=== PATIENT | female | born 1965 | race Caucasian/White ===

== ENCOUNTER → 2021-12-17 13:58 | Outpatient (REF) | payer SELFPAY | LOC: ANHLAB 13:58 | PROVIDERS: Visit Provider Surgery Plastic and Reconstructive Surgery | DX: N64.89 Other specified disorders of breast (principal) | CPT/HCPCS: 88104; 88108; 88184; 88305 ==

== ENCOUNTER 2022-01-30 11:17 | Day surgery (SDC) | payer OTHER, SELFPAY ==
[2022-01-16 10:23] VITALS: BMI 33.3
--- NOTE | 2022-01-16 10:32 | SUR.PREOP ---
PRE-OPERATIVE [address] [address] 1. Report to the Surgery Center Waiting Room, the entrance is the first door on the right after passing through the automatic sliding doors, at time ___1200_on date_01/30/22____. OR Time:__1330___ . When you arrive, you and your visitor will be screened for Covid prior to entry. A mask is required within the surgery center. 2. Patients may have clear liquids (water, carbonated beverages, clear teas, apple juice) until 3 hours prior to surgery with a maximum of 20 ounces. ? No food from midnight until time of surgery. ? Infants may have breast milk until 4 hours before surgery, formula 6 hours prior to surgery. ? Children will be allowed to drink immediately following surgery. If applicable, please bring a bottle or sippy cup to assist with drinking. Juice, water, soda, and popsicles are readily available. For infants on formula, please bring formula the day of surgery. Pacifiers are allowed. 3. Take the following medications with a SIP of water the morning of surgery: 1. 2. 3. Medications to discontinue per physician order: 1. date to discontinue: 4. No make-up, nail bhutanese, hairspray, perfume, deodorant, or body powder the day of surgery. No jewelry (including any body piercings) or valuables the day of surgery. Please take a shower or bath the night before, or the morning of, surgery with an antibacterial soap. Wear comfortable, loose fitting clothing. Children are encouraged to wear pajamas. ? Jewelry must be removed prior to entering the operating room. Rings and piercings that are not removed will be cut off. The center will not accept responsibility for valuables. Please leave all valuables, including medications, at home the day of surgery. 5. When going home after surgery, a licensed front end driver must drive you home. NO public transportation without another adult. We recommend someone to stay with you, no alcoholic beverages, driving or important decision making for 24 hours after surgery. For pediatric surgeries, we recommend two adults to accompany a child home. (Only one will be allowed into the building with the patient) 6. 1 visitor (over age of 18) will be allowed. The visitor will drop patient off and remain in car until patient is prepared for surgery. Visitor will be called to join patient. Exceptions: Adult of a pediatric patient, patients with intellectual and/or developmental disability or cognitive impairments can accompany patient through-out visit. Visitors will need to be screened prior to coming into the center. Screening will include Covid symptom question checking. Visitor must wear a mask. Visitor will remain in patient?s room for duration of stay. 7. If you or anyone in your household have experienced Covid symptoms in the past week, please notify your surgeon or surgery center at phone number below for possible testing. 8. Follow any additional instructions given by your physician. Telephone instructions given to:___Tejal Barrientos____ and asked if any additional questions and then verbalized understanding. Patient advised to call surgeon office or the surgery center at [phone] if any additional questions.
[2022-01-30 11:36] VITALS: BP 142/94; PULSE 78; RESP 20; TEMP 37.2; O2SAT 96
[2022-01-30 11:37] VITALS: BMI 33.7
[2022-01-30] MEDS: ACETAMINOPHEN 500 MG TABLET 1000 MG PO (11:48)
[2022-01-30] MEDS: SCOPOLAMINE 1.5 MG PATCH TRANSDERM (11:48)
[2022-01-30] MEDS: LACTATED RINGERS 1,000 ML 30 ML IV CONT ×2 (12:02→15:10)
--- NOTE | 2022-01-30 12:06 | WPDANESEPPF ---
Anes - Initial Pre Proc Eval Procedure: Operation Date: 01/30/22 13:30 Proposed Procedures p Bilateral Breast Implant Removal - Tre Rutherford MD Date/Time: 01/30/22 12:06 Surgeon: Tre Rutherford MD Pre Op Diagnosis: History of Breast Augmentation Patient Data Age: 56 Gender: F Height: 1.63 m Weight: 89.3 kg Last Vital Signs Temp 37.2 C 01/30/22 11:36 Pulse 78 01/30/22 11:36 Resp 20 01/30/22 11:36 BP 142/94 H 01/30/22 11:36 Pulse Ox 96 01/30/22 11:36 O2 Del Method Room Air 01/30/22 11:36 Allergies Allergy/AdvReac Type Severity Reaction Status Date / Time No Known Allergies Allergy Verified 01/30/22 11:30 Home Medications Medication Instructions Recorded Confirmed Type clonazepam 1 mg tablet 1 mg PO BID 12/08/21 01/30/22 History levothyroxine 75 mcg PO DAILY 12/08/21 01/30/22 History lisinopril 40 mg tablet 40 mg PO DAILY 12/08/21 01/30/22 History vortioxetine 20 mg tablet 10 mg PO DAILY 12/08/21 01/30/22 History (Trintellix) docusate sodium 100 mg capsule 100 mg PO DAILY #14 caps 01/15/22 01/16/22 Rx (Colace) ondansetron HCl 4 mg tablet 4 mg PO Q8H #21 tabs 01/15/22 01/16/22 Rx hydrocodone 5 mg-acetaminophen 325 1 tablet PO Q6H PRN pain #30 tabs 01/16/22 01/16/22 Rx mg tablet Patient hx anesthesia problems: none Family hx anesthesia problems: none Results Review: All pre-operative results and documents have been reviewed as part of the pre-operative evaluation. [facility] Surgical History Surgical History (Updated 01/30/22 @ 12:07 by Mumtaz Hartley MD) H/O arthroscopic knee surgery Hx of abdominoplasty Hx of breast augmentation Hx of section Family History Family History Other Hypertension Social History Social History Smoking status: Current every day smoker Alcohol intake: never Substance use: never Anes - Eval Final PreProcedure Day of Procedure 01/30/22 12:06 Patient weight: obese Heart: regular rate and rhythm Lungs: clear to auscultation Airway: Mallampati scale class II Neurological: alert and oriented Last oral intake: >/= 8 hours Emergent: no Anesthetic plan: proceed Anesthesia type and monitoring: general LMA and standard monitoring Results Review: All pre-operative results and documents have been reviewed as part of the pre-operative evaluation. Informed Consent: The patient's anesthetic plan and its attendant risks and benefits were discussed with the patient/family/POA. Questions were solicited and answers provided to the satisfaction of the patient/family/POA.
--- NOTE | 2022-01-30 12:52 | WPDHPUPDATE1 ---
History and Physical Update Update Date/Time: 01/30/22 12:52 History and Physical has been reviewed, including an updated exam of the patient. There are NO changes in the patient's condition. Risks, benefits, and alternatives have been discussed and questions answered. Patient agrees to proceed with procedure.
--- NOTE | 2022-01-30 13:00 | SUR.PREOP ---
FEMALE STAFF IN ROOM WHILE DR PRETTY MARKED PT
--- NOTE | 2022-01-30 13:13 | P.OP_ITS ---
Procedure Note - Detailed Date of Procedure 01/30/22 Pre-op Diagnosis History of Breast Augmentation Post-op Diagnosis Same Procedure Performed Bilateral breast implant removal with capsulectomy Surgeon Tre Rutherford MD Anesthesia General Findings Bilateral textured implants Right straw color seroma has recurred approximally 500cc. Right capsule thickened and mass like. Left no seroma. Left capsule thin, soft. No worriseome featured. Description of Procedure She is here today for bilateral breast implant removal. She has a history of left rupture. She had a significant seroma on the right which was aspirated for pathology. Previously and again today risks, benefits, alternatives were discussed in extensive detail. I want her to be very realistic about the risks involved as well as expectations. We had a lengthy discussion about pathology. She had concerns due to the cost of the previous pathology and explained to her with home pathology am unable to verify no ALCL or other diagnosis without sending the capsule. Given her textured history as well as concerns with the seroma she would like proceed with sending this to pathology and understands that will be an additional cost to her. All questions were answered to her satisfaction. Consent obtained. Patient was taken to the operating room placed supine on the operating room table. Anesthesia provided by anesthesiology and prepped and draped in a standard sterile fashion. Surgical time-out was taken. 1% lidocaine and 0.25% Marcaine with epinephrine was used to provide bilateral field block. She has elected to proceed with a IMF incision rather than previous aamir- areolar. This was made and dissection was continued down to the capsules identified. On the right the capsule was thickened and mass like in multiple locations. This was removed and sent to pathology. I copiously irrigated with saline solution on TUR tubing. 15 hernan drain placed and sutured into place with 3-0 nylon. Closed with 2-0 vicryl, 3-0 quill, 4-0 monocryl, and tissue glue. Due to worrisome nature we completely changed our entire setup and redraped the patient before proceeding on the left. On the left the capsule was thin and removed and sent to pathology. I copiously irrigated with saline solution on TUR tubing. 15 hernan drain placed and sutured into place with 3-0 nylon. Closed with 2-0 vicryl, 3-0 quill, 4-0 monocryl, and tissue glue. Woken taken to the PACU without difficulty. All instrument sponge counts were correct at the end of the case. Estimated Blood Loss 100 Drains Yes (Bilateral hernan) Packing No Pathology Yes (Bilateral breast tissue) Complications No immediate complications Condition Stable Disposition PACU
[2022-01-30] MEDS: LIDO 1%/EPINEPHRINE 1:100,000 20 ML VIAL 30 ML INFILTRATE (14:02)
--- NOTE | 2022-01-30 14:43 | SUR.OPER ---
While removing right breast capsule per Dr Orders patient was redraped and new supplies were opened.
[2022-01-30 15:10] VITALS: BP 105/62; PULSE 87; RESP 19; TEMP 36.1; O2SAT 100
[2022-01-30 15:25] VITALS: BP 112/65; PULSE 79; RESP 15; O2SAT 98
[2022-01-30 15:26] VITALS: BP 107/62; PULSE 73; RESP 20; O2SAT 93
--- NOTE | 2022-01-30 15:28 | SUR.PHASEI ---
pt states shes ready to go home/denies pain/no distress/awake/dc'd to op rec
[2022-01-30] MEDS: oxyCODONE HCL (*CRX) 5 MG TAB IR PO (15:42)
--- NOTE | 2022-01-30 15:49 | WPDANESPN ---
Anes - Prog Note Post-Op Date/Time: 01/30/22 15:49 Cardiovascular status: normal Respiratory status: normal Airway patency: baseline Mental status: baseline Post-Op hydration status: normal Vital Signs: Last Vital Signs Temp 36.1 C L 01/30/22 15:10 Pulse 73 01/30/22 15:26 Resp 20 01/30/22 15:26 BP 107/62 01/30/22 15:26 Pulse Ox 93 01/30/22 15:26 O2 Del Method Room Air 01/30/22 15:26 O2 Flow Rate 5 01/30/22 15:10 Pain Score (VAS): 08/04 I/O: Intake & Output 01/29/22 01/30/22 01/30/22 23:59 07:59 15:59 Intake Total 50 Balance 50 Patient Feedback: Patient satisfied with anesthetic care.
[2022-01-30 15:56] VITALS: BP 121/81; PULSE 73; RESP 20; O2SAT 95
== END 2022-01-30 16:10 | disposition home or self-care (01) ==
PROVIDERS: Visit Provider Surgery Plastic and Reconstructive Surgery
PROC: 0HPT0JZ Removal of Synthetic Substitute from Right Breast, Open Approach (ICD-10-PCS; CPT 19371; principal; 2022-01-30 13:30)
DX: Z98.82 Breast implant status (principal)
CPT/HCPCS: 19371

== ENCOUNTER 2022-01-30 13:00 | Outpatient (NON) | payer OTHER, SELFPAY | END 2022-01-30 13:01 | disposition home or self-care (01) | PROVIDERS: Visit Provider Surgery Plastic and Reconstructive Surgery | DX: C50.911 Malignant neoplasm of unspecified site of right female breast (principal); Z98.82 Breast implant status | CPT/HCPCS: 88304; 88341; 88342 ==